=== PATIENT | male | born 1955 | race Caucasian/White ===

== ENCOUNTER 2024-07-06 10:19 | Emergency (ER) | payer MEDICARE | END 2024-07-06 12:49 | disposition home or self-care (01) | LOC: CSHERS 10:19 | DX: S09.90XA Unspecified injury of head, initial encounter (principal); F03.90 Unspecified dementia, unspecified severity, without behavioral disturbance, psychotic disturbance, mood disturbance, and anxiety; E78.5 Hyperlipidemia, unspecified; Z79.899 Other long term (current) drug therapy; W19.XXXA Unspecified fall, initial encounter | CPT/HCPCS: 70450; 72125 ==